=== PATIENT | male | born 1940 | race Caucasian/White ===

== ENCOUNTER 2022-02-11 05:03 | Emergency (ER) | payer MEDICARE ==
[2022-02-11] MEDS: Sodium Chloride 0.9% 10 ML Syringe FLUSH PRN (06:17)
[2022-02-11] MEDS: Morphine 2 MG/ML SYRINGE IVPUSH ONE (06:58)
[2022-02-11] MEDS: Lidocaine 1% 5 ML VIAL INJECT ONE (06:59)
[2022-02-11] MEDS: Propofol 200 MG/20 ML SDV IVPUSH ONE (08:06)
== END 2022-02-11 08:39 | disposition home or self-care (01) ==
LOC: JP.ED 05:03
DX: S52.502A Unspecified fracture of the lower end of left radius, initial encounter for closed fracture (principal); S61.512A Laceration without foreign body of left wrist, initial encounter; S40.022A Contusion of left upper arm, initial encounter; E11.42 Type 2 diabetes mellitus with diabetic polyneuropathy; E11.22 Type 2 diabetes mellitus with diabetic chronic kidney disease; N18.31 Chronic kidney disease, stage 3a; D63.1 Anemia in chronic kidney disease; E78.5 Hyperlipidemia, unspecified; Z95.0 Presence of cardiac pacemaker; W10.8XXA Fall (on) (from) other stairs and steps, initial encounter
CPT/HCPCS: 12001; 36415; 72052; 73060; 73080; 73100; 73110; 80048; 85025; 85610; 85730; 96374; 99283; J2270; J2704; J3490